=== PATIENT | female | born 1975 | race Caucasian/White ===

== ENCOUNTER 2022-08-12 02:00 | Observation (INO) ==
[2022-08-12 02:33] VITALS: BMI 33.8
[2022-08-12 03:08] LABS: BILIRUBIN,URINE NEGATIVE (NEGATIVE); BLOOD/HEMOGLOBIN,URINE 2+ (NEGATIVE); GLUCOSE, URINE 4+ (NEGATIVE); KETONES,URINE NEGATIVE (NEGATIVE); LEUKOCYTE ESTERASE ,URINE NEGATIVE (NEGATIVE); NITRITES,URINE NEGATIVE (NEGATIVE); PROTEIN,URINE 3+ (NEGATIVE); UROBILINOGEN,URINE NORMAL (NORMAL)
[2022-08-12 03:10] LABS: BASOPHILS # (AUTO) 0.1 X10^3/uL (0.0-0.1); BASOPHILS % (AUTO) 1.1 % (0.2-1.0); EOSINOPHILS # (AUTO) 0.2 x10^3/uL (0.0-0.2); EOSINOPHILS % (AUTO) 2.1 % (0.9-2.9); HEMATOCRIT 41.2 % (36.0-47.0); HEMOGLOBIN 13.6 g/dL (12.0-16.0); LYMPHOCYTES # (AUTO) 3.1 X10^3/uL (1.3-2.9); LYMPHOCYTES % (AUTO) 31.5 % (21.0-51.0); MEAN CORPUSCULAR HEMOGLOBIN 25.3 pg (27.0-34.0); MEAN CORPUSCULAR VOLUME 76.7 fL (80.0-100.0); MEAN PLATELET VOLUME 8.4 fL (7.4-11.0); MONOCYTES # (AUTO) 0.6 x10^3/uL (0.3-0.8); MONOCYTES % (AUTO) 6.3 % (0.0-13.0); NEUTROPHILS # (AUTO) 5.9 x10^3/uL (2.2-4.8); RED BLOOD COUNT 5.37 X10^6/uL (3.5-5.4)
--- NOTE | 2022-08-12 03:21 | DR.EXTPAIN ---
HPI Time seen Time Seen by Provider: 08/12/22 02:18 PCP Primary Care Physician: CYDNEY MOTA AT [facility] Complaint/Symptoms Chief Complaint Doctor Comments: Patient has epigastric abdominal pain.She was evaluated in [place] last night .Patient had labs done.She was diagnosed with indigestion.Patient states that her sxs began tuesday. She had not eaten anything until last night when she ate half of a ham sandwich.Patient observed that after eating she had epigastric pain that radiated to her entire back.Patient feels nauseated and presents b/c pf persistent pain. Patient denies: fever,hematemesis,hematochezia,weakness,urinary sxs. Chief Complaint:: PT AMBULATORY IN ED WITH C/O MID UPPER ABD PAIN RADIATING TO RIGHT UPPER ABD ABD BACK. STATES SHE WENT TO [facility] LAST NIGHT, DID A CARDIAC WORKUP AND DX HER WITH INDIGESTION. NO RELIEF WITH MEDS GIVEN THERE. COVID-19 Coronavirus risk:travel/contact w/high risk person: No Has patient experienced Coronavirus symptoms: No Source History Provided: Patient Mode of arrival Mode of Arrival: Ambulatory Timing Onset of Chief Complaint: 08/08/22 PMH PMH Past Medical History: Yes Past Medical History: Depression, Diabetes and Hypertension Past Medical History Comment: CONSTIPATION Past Surgical History: Yes Past Surgical History Comment: STENT TO LEFT GROIN ARTERY Family History History of Family Medical Conditions: Yes Family Medical History: Diabetes Mellitus, Cancer, MS, Coronary Artery Disease, Heart Failure and Hypertension Social History Does patient currently use any type of tobacco product: Yes Have you used tobacco products in the last 12 months: Yes Type of Tobacco Use: Cigarettes Does any household member use tobacco: No Alcohol Use: None Do you use any recreational Drugs:: No Lives With: Spouse Lives Where: Home Travel Risk Coronavirus risk:travel/contact w/high risk person: No Has patient experienced Coronavirus symptoms: No Infectious screening In the last 2 months have you had wt loss of >10#?: NO Have you had fever, night sweats or hemotysis?: No Have you traveled outside the country in the last 6 months?: No Isolation: Standard ROS Review of Systems Constitutional: No Symptoms Reported Eyes: No Symptoms Reported ENTM: No Symptoms Reported Respiratoy: No Symptoms Reported Cardiovascular: No Symptoms Reported Gastrointestinal/Abdominal: No Symptoms Reported, Abdominal Pain (epigastric) and Nausea Genitourinary: No Symptoms Reported Neurological: No Symptoms Reported Musculoskeletal: No Symptoms Reported Integumentary: No Symptoms Reported Hematologic/Lymphatic: No Symptoms Reported Endocrine: No Symptoms Reported Psychiatric: No Symptoms Reported All Other Systems: Reviewed and Negative PE Vital Signs Vitals: Temperature 98.0 F Pulse Rate [Right Brachial] 65 Pulse Rate 75 Respiratory Rate 20 Blood Pressure [Right Arm] 140/67 Blood Pressure 153/77 O2 Sat by Pulse Oximetry 99 General Limitations: No Limitations General Appearance: Alert and In No Apparent Distress Head Head Exam: Normal Inspection Eyes Eye exam: Normal Appearance ENT ENT Exam: Normal Exam Neck Neck Exam: Normal Inspection Chest Chest Inspection: Normal Inspection Respiratory Respiratory Exam: Normal Lung Sounds Bilat Respiratory Exam: Bilateral: Clear to Auscultation Cardiovascular Cardiovascular Exam: Regular Rate and Normal Rhythm Abdominal Exam Abdominal Exam: Normal Inspection, Soft, Tenderness (epigastrium) and Hypoactive Bowel Sounds Extremities Extremities Exam: Normal Inspection Back Back Exam: Normal Inspection Neurological Neurological Exam: Alert, Oriented X3 and CN II-XII Intact Psychiatric Psychiatric Exam: Normal Affect and Normal Mood Skin Skin Exam: Warm, Dry, Intact and Normal Color MDM Differential Diagnosis Differential Diagnosis: Other (Gallstone pancreatitis,pancreatitis,dehydration,electrolyte abnormality,obstruction,perforation) COURSE Treatment Treatment: Patient was brought to a monitored room. IV access was initiated.Patient was given toradol 30mg IV and zofran 4mg iv. Patient has a lipase of 2625.Patient has been accepted to Dr Mayes's service for further evaluation. ROR Labs Reviewed Laboratory Results Reviewed?: Yes Result Diagrams: 08/12/22 02:53 08/12/22 02:53 Laboratory: WBC 10.0 X10^3/uL (3.6-10.0) 08/12/22 02:53 RBC 5.37 X10^6/uL (3.5-5.4) 08/12/22 02:53 Hgb 13.6 g/dL (12.0-16.0) 08/12/22 02:53 Hct 41.2 % (36.0-47.0) 08/12/22 02:53 MCV 76.7 fL (80.0-100.0) L 08/12/22 02:53 MCH 25.3 pg (27.0-34.0) L 08/12/22 02:53 MCHC 33.0 g/dL (33.0-35.0) 08/12/22 02:53 RDW 16.0 % (11.6-16.5) 08/12/22 02:53 Plt Count 251 X10^3/uL (150.0-450.0) 08/12/22 02:53 MPV 8.4 fL (7.4-11.0) 08/12/22 02:53 Neut % (Auto) 59.0 % (42.0-75.0) 08/12/22 02:53 Lymph % (Auto) 31.5 % (21.0-51.0) 08/12/22 02:53 Mckean % (Auto) 6.3 % (0.0-13.0) 08/12/22 02:53 Eos % (Auto) 2.1 % (0.9-2.9) 08/12/22 02:53 Baso % (Auto) 1.1 % (0.2-1.0) H 08/12/22 02:53 Neut # (Auto) 5.9 x10^3/uL (2.2-4.8) H 08/12/22 02:53 Lymph # (Auto) 3.1 X10^3/uL (1.3-2.9) H 08/12/22 02:53 Mckean # (Auto) 0.6 x10^3/uL (0.3-0.8) 08/12/22 02:53 Eos # (Auto) 0.2 x10^3/uL (0.0-0.2) 08/12/22 02:53 Baso # (Auto) 0.1 X10^3/uL (0.0-0.1) 08/12/22 02:53 Absolute Nucleated RBC 0.0 /100WBC 08/12/22 02:53 Sodium 138 mmol/L (136-145) 08/12/22 02:53 Corrected Sodium 143 mmol/L (136-145) 08/12/22 02:53 Potassium 3.4 mmol/L (3.5-5.1) L 08/12/22 02:53 Chloride 101 mmol/L (98-107) 08/12/22 02:53 Carbon Dioxide 32.3 mmol/L (21-32) H 08/12/22 02:53 BUN 11 mg/dL (7-18) 08/12/22 02:53 Creatinine 0.80 mg/dL (0.55-1.02) 08/12/22 02:53 Est GFR (MDRD) Af Amer > 60 (>60) 08/12/22 02:53 Est GFR (MDRD) Non-Af > 60 (>60) 08/12/22 02:53 Glucose 318 mg/dL (65-99) H 08/12/22 02:53 Calcium 8.4 mg/dL (8.5-10.1) L 08/12/22 02:53 Corrected Calcium 9.1 mg/dL (8.5-10.1) 08/12/22 02:53 Total Bilirubin 0.20 mg/dL (0.2-1.0) 08/12/22 02:53 AST 15 Units/L (15-37) 08/12/22 02:53 ALT 19 Units/L (12-78) 08/12/22 02:53 Alkaline Phosphatase 67 Units/L (46-116) 08/12/22 02:53 Total Protein 6.7 g/dL (6.4-8.2) 08/12/22 02:53 Albumin 3.1 g/dL (3.4-5.0) L 08/12/22 02:53 Globulin 3.6 g/dL (2.5-4.5) 08/12/22 02:53 Albumin/Globulin Ratio 0.9 Ratio (1.1-2.1) L 08/12/22 02:53 Lipase 2625 Units/L (73-393) H 08/12/22 02:53 HCG, Qual Negative <10 mIU/mL 08/12/22 02:53 Specimen Type Clean catch urine 08/12/22 02:53 Urine Color Yellow (YELLOW) 08/12/22 02:53 Urine Appearance Clear (CLEAR) 08/12/22 02:53 Urine pH 5.0 (5.0 - 8.0) 08/12/22 02:53 Ur Specific [place] 1.020 (1.000-1.030) 08/12/22 02:53 Urine Protein 3+ (NEGATIVE) 08/12/22 02:53 Urine Glucose (UA) 4+ (NEGATIVE) 08/12/22 02:53 Urine Ketones Negative (NEGATIVE) 08/12/22 02:53 Urine Blood 2+ (NEGATIVE) 08/12/22 02:53 Urine Nitrite Negative (NEGATIVE) 08/12/22 02:53 Urine Bilirubin Negative (NEGATIVE) 08/12/22 02:53 Urine Urobilinogen Normal (NORMAL) 08/12/22 02:53 Ur Leukocyte Esterase Negative (NEGATIVE) 08/12/22 02:53 Urine RBC 0-2 /HPF (0-3) 08/12/22 02:53 Urine WBC None seen /HPF (0-5) 08/12/22 02:53 Ur Squamous Epith Cells Rare /HPF (NEGATIVE) 08/12/22 02:53 Urine Bacteria Negative /HPF (NEGATIVE) 08/12/22 02:53 Ur Culture Indicated? No/not indicated 08/12/22 02:53 XRAY XRAY Interpreted by: Radiologist X-ray Results: STUDY: CT ABDOMEN AND PELVIS WITH IV CONTRAST COMPARISON: None TECHNIQUE: Axial images were acquired of the abdomen and pelvis with IV contrast. Sagittal and coronal reformatted images were provided. All images were reviewed in a variety of windows and levels. RADIATION REDUCTION TECHNIQUE: Automated exposure control, adjustment of the mA and/or kV according to patient size, or iterative reconstruction techniques were used. HISTORY: PT AMBULATORY IN ED WITH C/O MID UPPER ABD PAIN RADIATING TO RIGHT UPPER ABD ABD BACK. FINDINGS: LOWER THORAX: The visualized lower lung zones are clear. The heart size is within normal limits. There is no evidence of a pericardial effusion. LIVER: No intrahepatic focal lesions are seen. No evidence of intrahepatic or extrahepatic duct dilation. GALLBLADDER: The gallbladder is unremarkable. SPLEEN: The spleen enhances homogenously and is unremarkable. PANCREAS: The pancreas enhances homogenously and is unremarkable. AGRENAL GLANDS: The adrenal glands enhance homogenously and are unremarkable. : The kidneys enhance homogenously. Their collecting system is of normal caliber.The uterus is grossly unremarkable. The adnexa are not clearly visualized. URINARY BLADDER: The urinary bladder is unremarkable. There are no soft tissue masses seen in the urinary bladder. VESSELS: The abdominal aorta is normal in size without evidence of aneurysm or dissection. The celiac artery, superior mesenteric artery, [place] renal arteries, and inferior mesenteric artery are patent. Endovascular stent noted in left common iliac vein. GI: The stomach and small bowel is unremarkable. Moderate to large amount of fecal material is seen throughout the GI tract suggesting constipation. There are no inflammatory changes seen in the right lower quadrant to suggest secondary signs of acute appendicitis. The appendix is not visualized on this exam. LYMPHNODES AND MESSENTERY: There is no evidence of retroperitoneal lymphadenop athy. BONES: The visualized bones demonstrate degenerative changes. There are no concerning lytic or blastic lesions identified. IMPRESSION: - No evidence of obstructive uropathy Electronically signed by: Jagdish Barrett (Aug 12, 2022 05:27:46) Opioid Opioid Risk Tool Age (Luis box if 16-45): Yes History of Preadolescent Sexual Abuse: No Total: 1 Total Score Risk Category: Low Risk Copyright: Kwesi GROSS predicting aberrant behaviors Discharge Plan Diagnosis Discharge Problem: Acute pancreatitis Discharge Plan Patient Disposition: 09 ADMITTED INPATIENT Condition: Stable Prescriptions: No Action spironolactone 25 mg tablet 1 tab PO QDAY metformin 1,000 mg tablet 1 tab PO BID hydrochlorothiazide 25 mg tablet 1 tab PO QDAY sertraline 50 mg tablet 1 tab PO QDAY glipizide 5 mg tablet 1 tab PO QDAY esomeprazole magnesium 20 mg capsule,delayed release(DR/EC) 1 cap PO BID Trulance 3 mg tablet 1 tab PO QDAY Health Concerns: Post Hospitalization: new medications and changes needed to prevent readmission or further decline. Pt educated and given instructions on all concerns. Plan of Treatment: Continue with present treatment and follow up plan. Pt is to keep follow up appointment as instructed and take medications as ordered. Orders to Discharge Patient Discharge Orders: Transfer (Routine); Ordered 08/12/22 Ordered By: Desiree Shultz Follow ups/Referrals Follow ups/Referrals: HALIMA MOTA [Primary Care Provider] - 3 days
[2022-08-12 03:25] LABS: ALANINE AMINOTRANSFERASE 19 Units/L (12-78); ALBUMIN 3.1 g/dL (3.4-5.0); ALKALINE PHOSPHATASE 67 Units/L (46-116); ASPARTATE AMINO TRANSFERASE 15 Units/L (15-37); BLOOD UREA NITROGEN 11 mg/dL (7-18); CALCIUM 8.4 mg/dL (8.5-10.1); CARBON DIOXIDE 32.3 mmol/L (21-32); CHLORIDE 101 mmol/L (98-107); COR CA(FOR HYPOALB) 9.1 mg/dL (8.5-10.1); COR NA(FOR HYPERGLY) 143 mmol/L (136-145); SODIUM 138 mmol/L (136-145); TOTAL PROTEIN 6.7 g/dL (6.4-8.2); eGFR NON BLACK RACES > 60 (>60)
[2022-08-12 03:28] LABS: APPEARANCE,URINE CLEAR (CLEAR); COLOR,URINE YELLOW (YELLOW)
[2022-08-12 03:29] LABS: BACTERIA,URINE NEGATIVE /HPF (NEGATIVE); RBC,URINE 0-2 /HPF (0-3); SQUAMOUS EPITHELIAL CELL,UR RARE /HPF (NEGATIVE)
[2022-08-12 03:32] LABS: SERUM PREGNANCY TEST, QUAL NEGATIVE <10 mIU/mL
[2022-08-12] MEDS ORDERED: TORADOL 30 MG VIAL IVP ONE (03:32)
[2022-08-12] MEDS ORDERED: ZOFRAN INJ 4 MG VIAL IVP ONE ×2 (03:34→06:49)
[2022-08-12] MEDS ORDERED: TORADOL 30 MG VIAL ONE (03:35)
[2022-08-12] MEDS ORDERED: ZOFRAN INJ 4 MG VIAL ONE ×2 (03:35→06:43)
--- NOTE | 2022-08-12 05:28 | CT ---
STUDY: CT ABDOMEN AND PELVIS WITH IV CONTRASTCOMPARISON: NoneTECHNIQUE: Axial images were acquired of the abdomen and pelvis with IV contrast. Sagittal and coronal reformatted images were provided. All images were reviewed in a variety of windows and levels.RADIATION REDUCTION TECHNIQUE: Automated exposure control, adjustment of the mA and/or kV according to patient size, or iterative reconstruction techniques were used.HISTORY: PT AMBULATORY IN ED WITH C/O MID UPPER ABD PAIN RADIATING TO RIGHT UPPER ABD ABD BACK.FINDINGS:LOWER THORAX: The visualized lower lung zones are clear. The heart size is within normal limits. There is no evidence of a pericardial effusion.LIVER: No intrahepatic focal lesions are seen. No evidence of intrahepatic or extrahepatic duct dilation.GALLBLADDER: The gallbladder is unremarkable.SPLEEN: The spleen enhances homogenously and is unremarkable.PANCREAS: The pancreas enhances homogenously and is unremarkable.AGRENAL GLANDS: The adrenal glands enhance homogenously and are unremarkable.: The kidneys enhance homogenously. Their collecting system is of normal caliber.The uterus is grossly unremarkable. The adnexa are not clearly visualized.URINARY BLADDER: The urinary bladder is unremarkable. There are no soft tissue masses seen in the urinary bladder.VESSELS: The abdominal aorta is normal in size without evidence of aneurysm or dissection. The celiac artery, superior mesenteric artery, [place] renal arteries, and inferior mesenteric artery are patent. Endovascular stent noted in left common iliac vein.GI: The stomach and small bowel is unremarkable. Moderate to large amount of fecal material is seen throughout the GI tract suggesting constipation. There are no inflammatory changes seen in the right lower quadrant to suggest secondary signs of acute appendicitis. The appendix is not visualized on this exam.LYMPHNODES AND MESSENTERY: There is no evidence of retroperitoneal lymphadenopathy.BONES: The visualized bones demonstrate degenerative changes. There are no concerning lytic or blastic lesions identified.IMPRESSION:- No evidence of obstructive uropathyElectronically signed by: Jagdish Barrett (Aug 12, 2022 05:27:46)
[2022-08-12] MEDS ORDERED: NS 1,000 ML IV 1,000 ML ONE (06:59)
[2022-08-12] MEDS: NS 1,000 ML IV 1,000 ML IV SCH ×2 (07:06→19:16)
[2022-08-12] MEDS ORDERED: NovoLIN R (or HumuLIN R) SUBCUT PRN (08:01)
[2022-08-12] MEDS: PROTONIX INJ 40 MG VIAL IVP SCH (09:14)
[2022-08-12] MEDS: ZOFRAN INJ 4 MG VIAL IVP PRN (09:14)
[2022-08-12] MEDS: ALDACTONE TAB 25 MG PO SCH (09:15)
[2022-08-12] MEDS: PLECANATIDE 3 MG PO SCH (09:15)
[2022-08-12] MEDS: HYDROCHLOROTHIAZIDE 25 MG TAB PO SCH (09:15)
[2022-08-12] MEDS: ZOLOFT PO SCH (09:15)
--- NOTE | 2022-08-12 13:00 | US ---
HISTORYACUTE PANCREATITIS, ABD PAINSTUDYGALL BLADDERCOMPARISONNoneTECHNIQUESeventy-ni ne images made by the english teacher. Jacob scale and color-flow images of the right upper quadrant were obtained.FINDINGSThe liver has diffuse increased echogenicity suggesting medical liver disease. The most common etiology for this finding is fatty liver; but cirrhosis, chronic hepatitis, and deposition disorders can have a similar appearance. The liver is large measuring over 20 cm. No mass or intrahepatic biliary duct dilatation is present. The intrahepatic inferior vena cava was imaged.The visualized hepatic veins are patent with blood flow toward the right atrium. The portal vein is patent with blood flow toward the liver. The hepatic artery is patent.The pancreatic head and proximal body are unremarkable. The remaining pancreas is not well identified due to overlying bowel gas.Echogenic areas with shadowing are present compatible with gallstones. No extrahepatic biliary duct dilatation; common duct is normal.The right kidney is normal in size and echogenicity. No hydronephrosis. Resistive index measures 0.5.IMPRESSION1. Cholelithiasis2. Hepatomegaly with findings suggesting steatosisElectronically signed by: Dandre Brady (Aug 12, 2022 12:58:43)
[2022-08-12] MEDS: NICOTINE PATCH TD SCH (13:22)
--- NOTE | 2022-08-12 17:38 | DR.H&P ---
H&P History & Physical for Day of: H&P Date: 08/12/22 Chief Complaint Chief Complaint: Epigastric pain Allergies Allergies Allergy/AdvReac Type Severity Reaction Status Date / Time Sulfa (Sulfonamide Allergy Verified 08/12/22 02:33 Antibiotics) [SULFA] History of Present Illness History of Present Illness: This is a pleasant 47-year-old white female who presented to the emergency department last night with epigastric pain. She is previously seen in the [facility] emergency department the night before and was diagnosed with indigestion. She has some labs but they might not have done amylase or lipase on her. Here she was found to have pancreatitis. Her symptoms started about 6 days ago and she reports she had not been eating much and that she ate a ham sandwich and that started the pain again in the epigastrium. She does report having a gallbladder still and had a gallbladder ultrasound years ago that did not show any gallstones. Exam today shows right upper quadrant tenderness along with epigastric tenderness. She is history of depression, diabetes mellitus type 2 and hypertension. Past Medical History Past Medical History: Depression, Diabetes and Hypertension Family History Family Medical History: Diabetes Mellitus, Cancer and Hypertension Social History Does patient currently use any type of tobacco product: Yes Have you used tobacco products in the last 12 months: Yes Type of Tobacco Use: Cigarettes Does any household member use tobacco: No Alcohol Use: None Drug Use: None Medications Home Medications: Sulfa (Sulfonamide Antibiotics) [SULFA] Allergy (Verified 08/12/22 02:33) CONTINUE taking the following medications cephalexin 500 mg capsule 1 cap PO BID 08/12/22 [History] esomeprazole magnesium 20 mg capsule,delayed release 1 cap PO BID 08/12/22 [History] glipizide 5 mg tablet 1 tab PO QDAY 08/12/22 [History] hydrochlorothiazide 25 mg tablet 1 tab PO QDAY 08/12/22 [History] metformin 1,000 mg tablet 1 tab PO BID 08/12/22 [History] plecanatide 3 mg tablet (Trulance) 1 tab PO QDAY 08/12/22 [History] sertraline 50 mg tablet 1 tab PO QDAY 08/12/22 [History] spironolactone 25 mg tablet 1 tab PO QDAY 08/12/22 [History] Labs Result Diagrams: 08/12/22 02:53 08/12/22 02:53 Labs: Laboratory WBC 10.0 X10^3/uL (3.6-10.0) 08/12/22 02:53 RBC 5.37 X10^6/uL (3.5-5.4) 08/12/22 02:53 Hgb 13.6 g/dL (12.0-16.0) 08/12/22 02:53 Hct 41.2 % (36.0-47.0) 08/12/22 02:53 MCV 76.7 fL (80.0-100.0) L 08/12/22 02:53 MCH 25.3 pg (27.0-34.0) L 08/12/22 02:53 MCHC 33.0 g/dL (33.0-35.0) 08/12/22 02:53 RDW 16.0 % (11.6-16.5) 08/12/22 02:53 Plt Count 251 X10^3/uL (150.0-450.0) 08/12/22 02:53 MPV 8.4 fL (7.4-11.0) 08/12/22 02:53 Neut % (Auto) 59.0 % (42.0-75.0) 08/12/22 02:53 Lymph % (Auto) 31.5 % (21.0-51.0) 08/12/22 02:53 Walker % (Auto) 6.3 % (0.0-13.0) 08/12/22 02:53 Eos % (Auto) 2.1 % (0.9-2.9) 08/12/22 02:53 Baso % (Auto) 1.1 % (0.2-1.0) H 08/12/22 02:53 Neut # (Auto) 5.9 x10^3/uL (2.2-4.8) H 08/12/22 02:53 Lymph # (Auto) 3.1 X10^3/uL (1.3-2.9) H 08/12/22 02:53 Walker # (Auto) 0.6 x10^3/uL (0.3-0.8) 08/12/22 02:53 Eos # (Auto) 0.2 x10^3/uL (0.0-0.2) 08/12/22 02:53 Baso # (Auto) 0.1 X10^3/uL (0.0-0.1) 08/12/22 02:53 Absolute Nucleated RBC 0.0 /100WBC 08/12/22 02:53 Sodium 138 mmol/L (136-145) 08/12/22 02:53 Corrected Sodium 143 mmol/L (136-145) 08/12/22 02:53 Potassium 3.4 mmol/L (3.5-5.1) L 08/12/22 02:53 Chloride 101 mmol/L (98-107) 08/12/22 02:53 Carbon Dioxide 32.3 mmol/L (21-32) H 08/12/22 02:53 BUN 11 mg/dL (7-18) 08/12/22 02:53 Creatinine 0.80 mg/dL (0.55-1.02) 08/12/22 02:53 Est GFR (MDRD) Af Amer > 60 (>60) 08/12/22 02:53 Est GFR (MDRD) Non-Af > 60 (>60) 08/12/22 02:53 Glucose 318 mg/dL (65-99) H 08/12/22 02:53 POC Glucose (mg/dL) 194 mg/dL (65-99) H 08/12/22 16:30 Calcium 8.4 mg/dL (8.5-10.1) L 08/12/22 02:53 Corrected Calcium 9.1 mg/dL (8.5-10.1) 08/12/22 02:53 Total Bilirubin 0.20 mg/dL (0.2-1.0) 08/12/22 02:53 AST 15 Units/L (15-37) 08/12/22 02:53 ALT 19 Units/L (12-78) 08/12/22 02:53 Alkaline Phosphatase 67 Units/L (46-116) 08/12/22 02:53 Total Protein 6.7 g/dL (6.4-8.2) 08/12/22 02:53 Albumin 3.1 g/dL (3.4-5.0) L 08/12/22 02:53 Globulin 3.6 g/dL (2.5-4.5) 08/12/22 02:53 Albumin/Globulin Ratio 0.9 Ratio (1.1-2.1) L 08/12/22 02:53 Lipase 2625 Units/L (73-393) H 08/12/22 02:53 HCG, Qual Negative <10 mIU/mL 08/12/22 02:53 Specimen Type Clean catch urine 08/12/22 02:53 Urine Color Yellow (YELLOW) 08/12/22 02:53 Urine Appearance Clear (CLEAR) 08/12/22 02:53 Urine pH 5.0 (5.0 - 8.0) 08/12/22 02:53 Ur Specific [place] 1.020 (1.000-1.030) 08/12/22 02:53 Urine Protein 3+ (NEGATIVE) 08/12/22 02:53 Urine Glucose (UA) 4+ (NEGATIVE) 08/12/22 02:53 Urine Ketones Negative (NEGATIVE) 08/12/22 02:53 Urine Blood 2+ (NEGATIVE) 08/12/22 02:53 Urine Nitrite Negative (NEGATIVE) 08/12/22 02:53 Urine Bilirubin Negative (NEGATIVE) 08/12/22 02:53 Urine Urobilinogen Normal (NORMAL) 08/12/22 02:53 Ur Leukocyte Esterase Negative (NEGATIVE) 08/12/22 02:53 Urine RBC 0-2 /HPF (0-3) 08/12/22 02:53 Urine WBC None seen /HPF (0-5) 08/12/22 02:53 Ur Squamous Epith Cells Rare /HPF (NEGATIVE) 08/12/22 02:53 Urine Bacteria Negative /HPF (NEGATIVE) 08/12/22 02:53 Ur Culture Indicated? No/not indicated 08/12/22 02:53 Review of Systems Constitutional: No Symptoms Reported Eyes: No Symptoms Reported ENT: No Symptoms Reported Respiratory: No Symptoms Reported Cardiovascular: No Symptoms Reported Gastrointestinal: Nausea and Abdominal Pain Musculoskeletal: No Symptoms Reported Skin: No Symptoms Reported Neurological: No Symptoms Reported Physical Exam Vital Signs: Temperature 97.2 F Pulse Rate [Right Brachial] 55 Pulse Rate 75 Respiratory Rate 16 Blood Pressure [Right Arm] 130/61 Blood Pressure 153/77 O2 Sat by Pulse Oximetry 99 Oriented: Normal, Time, Person and Place Eyes: Normal Nose: Normal Throat: Normal Respiratory: Clear Throughout Cardiovascular: Normal; negative Tachycardia, Bradycardia or Irregular Auscultation: Bowel Sounds: Normal Palpation: Normal Tenderness: RUQ and Epigastric Skin: Normal Musculoskeletal: Normal Psychiatric: Normal Mood Description: Calm Affect: Normal Speech Pattern: Clear and Appropriate Assessment/Plan (1) Acute pancreatitis: Status: Acute Plan: N.p.o., IV fluids and pain control. Recheck amylase lipase in a.m. (2) Right upper quadrant pain: Status: Acute Plan: Check gallbladder ultrasound. (3) Diabetes mellitus type 2 in obese: Status: Acute Plan: Start slight scale regular insulin per protocol. (4) Hypertension: Status: Acute Plan: Hold p.o. medications at this time. If needed we will treat with IV Lopressor. (5) Depression: Narrative Support Text: Holding p.o. medications at this time. Status: Acute Review H&P Reviewed: Yes Patient was examined?: Yes
[2022-08-12] MEDS ORDERED: MORPHINE SULFATE INJ 2 MG INJ ONE (18:32)
[2022-08-12] MEDS: MORPHINE SULFATE INJ 2 MG INJ IVP PRN ×2 (18:33→22:30)
[2022-08-12] MEDS: SNACK - Diabetic Appropriate PO SCH (21:16)
[2022-08-13 06:13] LABS: BASOPHILS % (AUTO) 0.7 % (0.2-1.0); EOSINOPHILS # (AUTO) 0.2 x10^3/uL (0.0-0.2); EOSINOPHILS % (AUTO) 2.8 % (0.9-2.9); HEMATOCRIT 40.4 % (36.0-47.0); HEMOGLOBIN 13.3 g/dL (12.0-16.0); LYMPHOCYTES # (AUTO) 2.2 X10^3/uL (1.3-2.9); LYMPHOCYTES % (AUTO) 30.5 % (21.0-51.0); MEAN CORPUSCULAR HEMOGLOBIN 25.4 pg (27.0-34.0); MEAN CORPUSCULAR HGB CONC 32.8 g/dL (33.0-35.0); MEAN CORPUSCULAR VOLUME 77.3 fL (80.0-100.0); MEAN PLATELET VOLUME 8.6 fL (7.4-11.0); MONOCYTES # (AUTO) 0.4 x10^3/uL (0.3-0.8); MONOCYTES % (AUTO) 5.6 % (0.0-13.0); NEUTROPHILS # (AUTO) 4.3 x10^3/uL (2.2-4.8); NEUTROPHILS % (AUTO) 60.4 % (42.0-75.0); RED BLOOD COUNT 5.23 X10^6/uL (3.5-5.4); WHITE BLOOD COUNT 7.1 X10^3/uL (3.6-10.0)
[2022-08-13 06:31] LABS: ALANINE AMINOTRANSFERASE 19 Units/L (12-78); ALBUMIN 2.8 g/dL (3.4-5.0); ALKALINE PHOSPHATASE 64 Units/L (46-116); ASPARTATE AMINO TRANSFERASE 16 Units/L (15-37); BLOOD UREA NITROGEN 6 mg/dL (7-18); CALCIUM 7.9 mg/dL (8.5-10.1); CARBON DIOXIDE 29.2 mmol/L (21-32); CHLORIDE 105 mmol/L (98-107); COR CA(FOR HYPOALB) 8.9 mg/dL (8.5-10.1); COR NA(FOR HYPERGLY) 143 mmol/L (136-145); CREATININE 0.63 mg/dL (0.55-1.02); LIPASE 956 Units/L (73-393); SODIUM 140 mmol/L (136-145); TOTAL PROTEIN 6.1 g/dL (6.4-8.2); eGFR NON BLACK RACES > 60 (>60)
[2022-08-13] MEDS: NS 1,000 ML IV 1,000 ML IV SCH ×3 (09:09→22:26)
[2022-08-13] MEDS: NICOTINE PATCH TD SCH (09:10)
[2022-08-13] MEDS: ALDACTONE TAB 25 MG PO SCH (09:10)
[2022-08-13] MEDS: PROTONIX INJ 40 MG VIAL IVP SCH (09:10)
[2022-08-13] MEDS: ZOLOFT PO SCH (09:10)
[2022-08-13] MEDS: HYDROCHLOROTHIAZIDE 25 MG TAB PO SCH (09:10)
[2022-08-13 09:19] LABS: IRON 72 ug/dL (50-175)
[2022-08-13] MEDS: PLECANATIDE 3 MG PO SCH (12:55)
--- NOTE | 2022-08-13 14:36 | DR.PROGNOT ---
HOSPITAL PROGRESS NOTE Progress Note for Day of: Progress Note Date: 08/13/22 Chief Complaint Chief Complaint: LESS ABDOMINAL PAIN TODAY .TOLERATING LIQUID DIET THIS AM History of Present Illness History of Present Illness: same as before . Past Medical Family Social History Changes in Past Med/Fam/Surg Hx: type 2 DM, HTN, chronic cholecystitis by Hx , Wt loss 100 lb , chronic cons Allergies: Allergies Sulfa (Sulfonamide Antibiotics) [SULFA] Allergy (Verified 08/12/22 02:33) Vital Signs Vital Signs: Temperature 97.3 F Pulse Rate [Right Brachial] 57 Pulse Rate 75 Respiratory Rate 18 Blood Pressure [Right Arm] 136/75 Blood Pressure 153/77 O2 Sat by Pulse Oximetry 97 Physical Exam Oriented: Normal, Time, Person and Place Eyes: Normal Nose: Normal Throat: Normal Cardiovascular: Normal; negative Tachycardia, Bradycardia or Irregular GI:Auscultation: Normal GI:Palpation: Other (soft , flat abdomen with mild upper abdominal tenderness . BS+) GI: Tenderness: RUQ and Epigastric Skin: Normal Musculoskeletal: Normal Psychiatric: Normal Mood Description: Calm Affect: Normal Speech Pattern: Clear and Appropriate Laboratory and Diagnostics Result Diagrams: 08/13/22 05:16 08/13/22 05:16 Labs: Laboratory WBC 7.1 X10^3/uL (3.6-10.0) 08/13/22 05:16 RBC 5.23 X10^6/uL (3.5-5.4) 08/13/22 05:16 Hgb 13.3 g/dL (12.0-16.0) 08/13/22 05:16 Hct 40.4 % (36.0-47.0) 08/13/22 05:16 MCV 77.3 fL (80.0-100.0) L 08/13/22 05:16 MCH 25.4 pg (27.0-34.0) L 08/13/22 05:16 MCHC 32.8 g/dL (33.0-35.0) L 08/13/22 05:16 RDW 16.0 % (11.6-16.5) 08/13/22 05:16 Plt Count 231 X10^3/uL (150.0-450.0) 08/13/22 05:16 MPV 8.6 fL (7.4-11.0) 08/13/22 05:16 Neut % (Auto) 60.4 % (42.0-75.0) 08/13/22 05:16 Lymph % (Auto) 30.5 % (21.0-51.0) 08/13/22 05:16 [place] % (Auto) 5.6 % (0.0-13.0) 08/13/22 05:16 Eos % (Auto) 2.8 % (0.9-2.9) 08/13/22 05:16 Baso % (Auto) 0.7 % (0.2-1.0) 08/13/22 05:16 Neut # (Auto) 4.3 x10^3/uL (2.2-4.8) 08/13/22 05:16 Lymph # (Auto) 2.2 X10^3/uL (1.3-2.9) 08/13/22 05:16 [place] # (Auto) 0.4 x10^3/uL (0.3-0.8) 08/13/22 05:16 Eos # (Auto) 0.2 x10^3/uL (0.0-0.2) 08/13/22 05:16 Baso # (Auto) 0.0 X10^3/uL (0.0-0.1) 08/13/22 05:16 Absolute Nucleated RBC 0.0 /100WBC 08/13/22 05:16 Sodium 140 mmol/L (136-145) 08/13/22 05:16 Corrected Sodium 143 mmol/L (136-145) 08/13/22 05:16 Potassium 3.9 mmol/L (3.5-5.1) 08/13/22 05:16 Chloride 105 mmol/L (98-107) 08/13/22 05:16 Carbon Dioxide 29.2 mmol/L (21-32) 08/13/22 05:16 BUN 6 mg/dL (7-18) L 08/13/22 05:16 Creatinine 0.63 mg/dL (0.55-1.02) 08/13/22 05:16 Est GFR (MDRD) Af Amer > 60 (>60) 08/13/22 05:16 Est GFR (MDRD) Non-Af > 60 (>60) 08/13/22 05:16 Glucose 206 mg/dL (65-99) H 08/13/22 05:16 POC Glucose (mg/dL) 237 mg/dL (65-99) H 08/13/22 12:32 Calcium 7.9 mg/dL (8.5-10.1) L 08/13/22 05:16 Corrected Calcium 8.9 mg/dL (8.5-10.1) 08/13/22 05:16 Iron 72 ug/dL (50-175) 08/13/22 05:16 Iron 74 ug/dL (50-175) 08/13/22 05:16 TIBC 300 ug/dL (250-450) 08/13/22 05:16 % Saturation 24.7 % (11.0-46.0) 08/13/22 05:16 Transferrin 218 mg/dL (202-364) 08/13/22 05:16 Ferritin 23 ng/mL (8-252) 08/13/22 05:16 Total Bilirubin 0.30 mg/dL (0.2-1.0) 08/13/22 05:16 AST 16 Units/L (15-37) 08/13/22 05:16 ALT 19 Units/L (12-78) 08/13/22 05:16 Alkaline Phosphatase 64 Units/L (46-116) 08/13/22 05:16 Total Protein 6.1 g/dL (6.4-8.2) L 08/13/22 05:16 Albumin 2.8 g/dL (3.4-5.0) L 08/13/22 05:16 Globulin 3.3 g/dL (2.5-4.5) 08/13/22 05:16 Albumin/Globulin Ratio 0.8 Ratio (1.1-2.1) L 08/13/22 05:16 Lipase 956 Units/L (73-393) H 08/13/22 05:16 HCG, Qual Negative <10 mIU/mL 08/12/22 02:53 Specimen Type Clean catch urine 08/12/22 02:53 Urine Color Yellow (YELLOW) 08/12/22 02:53 Urine Appearance Clear (CLEAR) 08/12/22 02:53 Urine pH 5.0 (5.0 - 8.0) 08/12/22 02:53 Ur Specific [place] 1.020 (1.000-1.030) 08/12/22 02:53 Urine Protein 3+ (NEGATIVE) 08/12/22 02:53 Urine Glucose (UA) 4+ (NEGATIVE) 08/12/22 02:53 Urine Ketones Negative (NEGATIVE) 08/12/22 02:53 Urine Blood 2+ (NEGATIVE) 08/12/22 02:53 Urine Nitrite Negative (NEGATIVE) 08/12/22 02:53 Urine Bilirubin Negative (NEGATIVE) 08/12/22 02:53 Urine Urobilinogen Normal (NORMAL) 08/12/22 02:53 Ur Leukocyte Esterase Negative (NEGATIVE) 08/12/22 02:53 Urine RBC 0-2 /HPF (0-3) 08/12/22 02:53 Urine WBC None seen /HPF (0-5) 08/12/22 02:53 Ur Squamous Epith Cells Rare /HPF (NEGATIVE) 08/12/22 02:53 Urine Bacteria Negative /HPF (NEGATIVE) 08/12/22 02:53 Ur Culture Indicated? No/not indicated 08/12/22 02:53 Assessment and Plan 1: subsiding gallstone pancreatitis . Pt could be discharged and arrange for elective lap wm next week 2: DM and HTN Problem Patient Problems: Patient Problems (Updated 08/12/22 @ 17:37 by THANIA GIRALDO) Acute pancreatitis (Acute) K85.90
[2022-08-13] MEDS: MORPHINE SULFATE INJ 2 MG INJ IVP PRN ×2 (18:19→23:16)
[2022-08-13] MEDS: ZOFRAN INJ 4 MG VIAL IVP PRN (18:22)
--- NOTE | 2022-08-13 19:05 | PCM.PROG ---
Progress Note Progress Note for Day of Date of Exam: 08/13/22 Subjective Subjective: Patient is feeling somewhat better this morning. She had no acute problems overnight. Her labs look good and her lipase is come down to the 900s. She is having less epigastric pain but she voices her concern about going home today. I told her we would recheck her lipase this afternoon and we did it it came down to 805 from greater than 900. She wanted to go home but we were able to convince her to stay and recheck her lipase in the morning to see what it was. I did do a general surgery consultation today and they have scheduled her to have a cholecystectomy set up as outpatient now. As soon as her lipase returns normal we will plan on letting her eat and if she tolerates it di scharging her home if she tolerates p.o intake. Past Medical Family Social History Allergies: Allergies Sulfa (Sulfonamide Antibiotics) [SULFA] Allergy (Verified 08/12/22 02:33) Vital Signs and I&O's Vital Signs: Temperature 98.6 F Pulse Rate [Right Brachial] 60 Pulse Rate 75 Respiratory Rate 20 Blood Pressure [Right Arm] 130/74 Blood Pressure 153/77 O2 Sat by Pulse Oximetry 99 Intake and Output: Intake & Output 08/11/22 08/12/22 08/13/22 08/14/22 11:59 11:59 11:59 11:59 Intake Total 1691 / 1691 240 / 240 Balance 1691 / 1691 240 / 240 Physical Exam Oriented: Normal, Time, Person and Place Eyes: Normal Nose: Normal Throat: Normal Respiratory: Normal Cardiovascular: Normal; negative Tachycardia, Bradycardia or Irregular Auscultation: Bowel Sounds: Normal Tenderness: RUQ and Epigastric Skin: Normal Musculoskeletal: Normal Psychiatric: Normal Mood Description: Calm Affect: Normal Speech Pattern: Clear and Appropriate Laboratory and Diagnostics Result Diagrams: 08/13/22 05:16 08/13/22 05:16 Labs: Laboratory WBC 7.1 X10^3/uL (3.6-10.0) 08/13/22 05:16 RBC 5.23 X10^6/uL (3.5-5.4) 08/13/22 05:16 Hgb 13.3 g/dL (12.0-16.0) 08/13/22 05:16 Hct 40.4 % (36.0-47.0) 08/13/22 05:16 MCV 77.3 fL (80.0-100.0) L 08/13/22 05:16 MCH 25.4 pg (27.0-34.0) L 08/13/22 05:16 MCHC 32.8 g/dL (33.0-35.0) L 08/13/22 05:16 RDW 16.0 % (11.6-16.5) 08/13/22 05:16 Plt Count 231 X10^3/uL (150.0-450.0) 08/13/22 05:16 MPV 8.6 fL (7.4-11.0) 08/13/22 05:16 Neut % (Auto) 60.4 % (42.0-75.0) 08/13/22 05:16 Lymph % (Auto) 30.5 % (21.0-51.0) 08/13/22 05:16 [place] % (Auto) 5.6 % (0.0-13.0) 08/13/22 05:16 Eos % (Auto) 2.8 % (0.9-2.9) 08/13/22 05:16 Baso % (Auto) 0.7 % (0.2-1.0) 08/13/22 05:16 Neut # (Auto) 4.3 x10^3/uL (2.2-4.8) 08/13/22 05:16 Lymph # (Auto) 2.2 X10^3/uL (1.3-2.9) 08/13/22 05:16 [place] # (Auto) 0.4 x10^3/uL (0.3-0.8) 08/13/22 05:16 Eos # (Auto) 0.2 x10^3/uL (0.0-0.2) 08/13/22 05:16 Baso # (Auto) 0.0 X10^3/uL (0.0-0.1) 08/13/22 05:16 Absolute Nucleated RBC 0.0 /100WBC 08/13/22 05:16 Sodium 140 mmol/L (136-145) 08/13/22 05:16 Corrected Sodium 143 mmol/L (136-145) 08/13/22 05:16 Potassium 3.9 mmol/L (3.5-5.1) 08/13/22 05:16 Chloride 105 mmol/L (98-107) 08/13/22 05:16 Carbon Dioxide 29.2 mmol/L (21-32) 08/13/22 05:16 BUN 6 mg/dL (7-18) L 08/13/22 05:16 Creatinine 0.63 mg/dL (0.55-1.02) 08/13/22 05:16 Est GFR (MDRD) Af Amer > 60 (>60) 08/13/22 05:16 Est GFR (MDRD) Non-Af > 60 (>60) 08/13/22 05:16 Glucose 206 mg/dL (65-99) H 08/13/22 05:16 POC Glucose (mg/dL) 177 mg/dL (65-99) H 08/13/22 17:32 Calcium 7.9 mg/dL (8.5-10.1) L 08/13/22 05:16 Corrected Calcium 8.9 mg/dL (8.5-10.1) 08/13/22 05:16 Iron 72 ug/dL (50-175) 08/13/22 05:16 Iron 74 ug/dL (50-175) 08/13/22 05:16 TIBC 300 ug/dL (250-450) 08/13/22 05:16 % Saturation 24.7 % (11.0-46.0) 08/13/22 05:16 Transferrin 218 mg/dL (202-364) 08/13/22 05:16 Ferritin 23 ng/mL (8-252) 08/13/22 05:16 Total Bilirubin 0.30 mg/dL (0.2-1.0) 08/13/22 05:16 AST 16 Units/L (15-37) 08/13/22 05:16 ALT 19 Units/L (12-78) 08/13/22 05:16 Alkaline Phosphatase 64 Units/L (46-116) 08/13/22 05:16 Total Protein 6.1 g/dL (6.4-8.2) L 08/13/22 05:16 Albumin 2.8 g/dL (3.4-5.0) L 08/13/22 05:16 Globulin 3.3 g/dL (2.5-4.5) 08/13/22 05:16 Albumin/Globulin Ratio 0.8 Ratio (1.1-2.1) L 08/13/22 05:16 Lipase 805 Units/L (73-393) H 08/13/22 15:58 HCG, Qual Negative <10 mIU/mL 08/12/22 02:53 Specimen Type Clean catch urine 08/12/22 02:53 Urine Color Yellow (YELLOW) 08/12/22 02:53 Urine Appearance Clear (CLEAR) 08/12/22 02:53 Urine pH 5.0 (5.0 - 8.0) 08/12/22 02:53 Ur Specific [place] 1.020 (1.000-1.030) 08/12/22 02:53 Urine Protein 3+ (NEGATIVE) 08/12/22 02:53 Urine Glucose (UA) 4+ (NEGATIVE) 08/12/22 02:53 Urine Ketones Negative (NEGATIVE) 08/12/22 02:53 Urine Blood 2+ (NEGATIVE) 08/12/22 02:53 Urine Nitrite Negative (NEGATIVE) 08/12/22 02:53 Urine Bilirubin Negative (NEGATIVE) 08/12/22 02:53 Urine Urobilinogen Normal (NORMAL) 08/12/22 02:53 Ur Leukocyte Esterase Negative (NEGATIVE) 08/12/22 02:53 Urine RBC 0-2 /HPF (0-3) 08/12/22 02:53 Urine WBC None seen /HPF (0-5) 08/12/22 02:53 Ur Squamous Epith Cells Rare /HPF (NEGATIVE) 08/12/22 02:53 Urine Bacteria Negative /HPF (NEGATIVE) 08/12/22 02:53 Ur Culture Indicated? No/not indicated 08/12/22 02:53 Plan (1) Acute pancreatitis: Status: Acute Narrative Support Text: Lipase decreasing since admission. Plan: N.p.o., IV fluids and pain control. Recheck amylase lipase in a.m. (2) Right upper quadrant pain: Status: Acute Plan: Check gallbladder ultrasound. (3) Diabetes mellitus type 2 in obese: Status: Acute Plan: Start slight scale regular insulin per protocol. (4) Hypertension: Status: Acute Plan: Hold p.o. medications at this time. If needed we will treat with IV Lopressor. (5) Depression: Status: Acute (6) Hepatomegaly: Status: Acute Plan: Check hepatitis panel and iron panel. (7) Steatosis, liver: Status: Acute Plan: Check hepatitis panel and iron panel. (8) Cholelithiasis: Status: Acute Plan: General surgery consultation.
[2022-08-13] MEDS: SNACK - Diabetic Appropriate PO SCH (20:37)
[2022-08-14] MEDS: MORPHINE SULFATE INJ 2 MG INJ IVP PRN (05:55)
[2022-08-14] MEDS: ZOLOFT PO SCH (08:49)
[2022-08-14] MEDS: PROTONIX INJ 40 MG VIAL IVP SCH (08:50)
[2022-08-14] MEDS: NICOTINE PATCH TD SCH (08:50)
[2022-08-14] MEDS: HYDROCHLOROTHIAZIDE 25 MG TAB PO SCH (08:50)
[2022-08-14] MEDS: ALDACTONE TAB 25 MG PO SCH (08:50)
[2022-08-14] MEDS: PLECANATIDE 3 MG PO SCH (08:51)
[2022-08-14 09:04] LABS: BASOPHILS # (AUTO) 0.1 X10^3/uL (0.0-0.1); BASOPHILS % (AUTO) 0.9 % (0.2-1.0); EOSINOPHILS # (AUTO) 0.1 x10^3/uL (0.0-0.2); EOSINOPHILS % (AUTO) 2.3 % (0.9-2.9); HEMATOCRIT 40.5 % (36.0-47.0); HEMOGLOBIN 13.1 g/dL (12.0-16.0); LYMPHOCYTES # (AUTO) 1.9 X10^3/uL (1.3-2.9); LYMPHOCYTES % (AUTO) 32.3 % (21.0-51.0); MEAN CORPUSCULAR HEMOGLOBIN 24.8 pg (27.0-34.0); MEAN CORPUSCULAR HGB CONC 32.3 g/dL (33.0-35.0); MEAN CORPUSCULAR VOLUME 76.7 fL (80.0-100.0); MEAN PLATELET VOLUME 8.2 fL (7.4-11.0); MONOCYTES # (AUTO) 0.3 x10^3/uL (0.3-0.8); MONOCYTES % (AUTO) 4.8 % (0.0-13.0); NEUTROPHILS # (AUTO) 3.5 x10^3/uL (2.2-4.8); NEUTROPHILS % (AUTO) 59.7 % (42.0-75.0); RED BLOOD COUNT 5.28 X10^6/uL (3.5-5.4); WHITE BLOOD COUNT 5.9 X10^3/uL (3.6-10.0)
[2022-08-14 09:07] LABS: ALANINE AMINOTRANSFERASE 16 Units/L (12-78); ALBUMIN 2.7 g/dL (3.4-5.0); ALKALINE PHOSPHATASE 57 Units/L (46-116); ASPARTATE AMINO TRANSFERASE 17 Units/L (15-37); BLOOD UREA NITROGEN 5 mg/dL (7-18); CALCIUM 8.1 mg/dL (8.5-10.1); CHLORIDE 105 mmol/L (98-107); COR CA(FOR HYPOALB) 9.1 mg/dL (8.5-10.1); COR NA(FOR HYPERGLY) 143 mmol/L (136-145); CREATININE 0.64 mg/dL (0.55-1.02); LIPASE 452 Units/L (73-393); SODIUM 141 mmol/L (136-145); eGFR NON BLACK RACES > 60 (>60)
[2022-08-14 09:54] VITALS: BP 147/80
== END 2022-08-14 10:10 | disposition home or self-care (01) ==
LOC: ER 02:17 → MED/SURG 02:17
PROVIDERS: ADMIT Family Medicine; ATTEND Family Medicine
DX: K80.20 Calculus of gallbladder without cholecystitis without obstruction; F32.A Depression, unspecified; R16.0 Hepatomegaly, not elsewhere classified; K76.0 Fatty (change of) liver, not elsewhere classified; R10.11 Right upper quadrant pain; Z72.0 Tobacco use; E66.9 Obesity, unspecified; K85.90 Acute pancreatitis without necrosis or infection, unspecified; I10 Essential (primary) hypertension; E11.65 Type 2 diabetes mellitus with hyperglycemia; R10.13 Epigastric pain

== ENCOUNTER 2022-08-27 06:14 | Observation (INO) ==
[2022-08-27] MEDS ORDERED: NS 100 ML IV 100 ML ONE (06:52)
[2022-08-27] MEDS ORDERED: NS 1,000 ML IV 1,000 ML ONE ×4 (06:53→09:56)
[2022-08-27] MEDS ORDERED: ANCEF VIAL 1 GRAM ONE (06:53)
--- NOTE | 2022-08-27 07:00 | EKG ---
Test Reason : pre op Blood Pressure : */* mmHG Vent. Rate : 63 BPM Atrial Rate : 63 BPM P-R Int : 156 ms QRS Dur : 92 ms QT Int : 406 ms P-R-T Axes : -7 25 16 degrees QTc Int : 415 ms Normal sinus rhythm Normal ECG No previous ECGs available Confirmed by Jann Helm ([id number]) on 08/29/2022 9:44:08 AM Referred By: Confirmed By: Jann Helm
--- NOTE | 2022-08-27 07:10 | RAD ---
HISTORYPRE-OP LAP CHOLESTUDYCHEST, 1 VIEWCOMPARISONNoneTECHNIQUEPA or AP view of the chestFINDINGSThe cardiac and mediastinal contours are within normal limits. The lungs are clear without focal consolidation or segmental collapse. No pleural effusion or pneumothorax.IMPRESSIONNo acute pulmonary process.Electronically signed by: Sen Hahn (Aug 27, 2022 07:03:23)
[2022-08-27] MEDS ORDERED: BRIDION ONE (07:18)
[2022-08-27] MEDS ORDERED: DIPRIVAN VIAL 20 ML ONE (07:18)
[2022-08-27] MEDS ORDERED: XYLOCAINE 2 % (PLAIN) ONE ×2 (07:18→08:34)
[2022-08-27] MEDS ORDERED: OFIRMEV IV 1000 MG VIAL 1,000 MG/100 ML VIAL IV ONE (07:18)
[2022-08-27] MEDS ORDERED: LACRI-LUBE S.O.P. ONE (07:19)
[2022-08-27] MEDS ORDERED: TORADOL 30 MG VIAL ONE (07:19)
[2022-08-27] MEDS ORDERED: ROBINUL ONE (07:19)
[2022-08-27] MEDS ORDERED: PEPCID 20 MG VIAL ONE (07:19)
[2022-08-27] MEDS ORDERED: ZOFRAN INJ 4 MG VIAL ONE (07:19)
[2022-08-27] MEDS ORDERED: ZEMURON 100 MG VIAL ONE (07:19)
[2022-08-27] MEDS ORDERED: BACTROBAN TOPICAL OINT ONE (08:17)
[2022-08-27] MEDS ORDERED: ULTANE GAS IN ONE (08:34)
[2022-08-27] MEDS ORDERED: KETAMINE HCL ONE (08:34)
[2022-08-27] MEDS ORDERED: FENTANYL VIAL INJ 100 mcg ONE (08:37)
[2022-08-27] MEDS ORDERED: VERSED ONE (08:37)
[2022-08-27] MEDS ORDERED: PRECEDEX INJ VIAL IVP ONE (08:44)
[2022-08-27] MEDS ORDERED: DECADRON INJ ONE (09:13)
[2022-08-27] MEDS ORDERED: EPHEDRINE SULFATE INJ ONE (09:35)
[2022-08-27] MEDS ORDERED: DILAUDID INJ ONE (10:27)
[2022-08-27] MEDS ORDERED: DILAUDID INJ IVP PRN (10:50)
[2022-08-27] MEDS ORDERED: BENADRYL INJ 50 MG VIAL IVP PRN (10:50)
[2022-08-27] MEDS ORDERED: BARHEMSYS INJ IVP PRN (10:50)
[2022-08-27] MEDS ORDERED: BARHEMSYS INJ ONE (11:26)
[2022-08-27] MEDS: D5 1/2 NS 1,000 ML 1,000 ML IV SCH ×3 (12:15→20:52)
[2022-08-27] MEDS: MYLICON TAB 80 MG CHEW PO PRN (13:27)
[2022-08-27] MEDS ORDERED: ANCEF VIAL 1 GRAM IV SCH (14:00)
[2022-08-27 14:24] LABS: BASOPHILS % (AUTO) 0.3 % (0.2-1.0); HEMATOCRIT 37.8 % (36.0-47.0); HEMOGLOBIN 12.2 g/dL (12.0-16.0); LYMPHOCYTES # (AUTO) 0.6 X10^3/uL (1.3-2.9); MEAN CORPUSCULAR HEMOGLOBIN 24.7 pg (27.0-34.0); MEAN CORPUSCULAR HGB CONC 32.3 g/dL (33.0-35.0); MEAN CORPUSCULAR VOLUME 76.4 fL (80.0-100.0); MEAN PLATELET VOLUME 8.3 fL (7.4-11.0); MONOCYTES # (AUTO) 0.1 x10^3/uL (0.3-0.8); MONOCYTES % (AUTO) 1.1 % (0.0-13.0); NEUTROPHILS # (AUTO) 11.5 x10^3/uL (2.2-4.8); NEUTROPHILS % (AUTO) 93.6 % (42.0-75.0); PLATELET COUNT 226 X10^3/uL (150.0-450.0); RED BLOOD COUNT 4.95 X10^6/uL (3.5-5.4); RED CELL DISTRIBUTION WIDTH 15.7 % (11.6-16.5); WHITE BLOOD COUNT 12.3 X10^3/uL (3.6-10.0)
[2022-08-27 14:39] LABS: ALANINE AMINOTRANSFERASE 74 Units/L (12-78); ALBUMIN 2.9 g/dL (3.4-5.0); ALKALINE PHOSPHATASE 64 Units/L (46-116); ASPARTATE AMINO TRANSFERASE 103 Units/L (15-37); BLOOD UREA NITROGEN 12 mg/dL (7-18); CALCIUM 7.7 mg/dL (8.5-10.1); CARBON DIOXIDE 26.8 mmol/L (21-32); CHLORIDE 103 mmol/L (98-107); COR CA(FOR HYPOALB) 8.6 mg/dL (8.5-10.1); COR NA(FOR HYPERGLY) 143 mmol/L (136-145); CREATININE 0.86 mg/dL (0.55-1.02); GLUCOSE 341 mg/dL (65-99); POTASSIUM 4.1 mmol/L (3.5-5.1); SODIUM 137 mmol/L (136-145); eGFR NON BLACK RACES > 60 (>60)
[2022-08-27 15:16] LABS: PLATELET MORPHOLOGY COMMENT NORMAL (NORMAL)
[2022-08-27 15:30] LABS: AMYLASE 44 Units/L (25-115); LIPASE 215 Units/L (73-393)
[2022-08-27] MEDS: DILAUDID INJ IVP PRN ×2 (15:47→19:58)
[2022-08-27] MEDS: ANCEF VIAL 1 GRAM 1 G in NS 100 ML IV 100 ML IV SCH ×2 (15:51→21:00)
[2022-08-27] MEDS: ZOFRAN INJ 4 MG VIAL IVP PRN (15:58)
[2022-08-27] MEDS ORDERED: MAALOX or MYLANTA ONE (17:55)
[2022-08-27] MEDS: MAALOX or MYLANTA PO PRN (18:00)
[2022-08-27] MEDS: NovoLIN R (or HumuLIN R) SC PRN ×2 (18:01→20:50)
[2022-08-27] MEDS: NICOTINE PATCH TD SCH (21:46)
[2022-08-28] MEDS: MYLICON TAB 80 MG CHEW PO PRN (00:47)
[2022-08-28] MEDS: MAALOX or MYLANTA PO PRN (00:47)
[2022-08-28] MEDS: DILAUDID INJ IVP PRN ×3 (00:55→18:47)
[2022-08-28] MEDS: ZOFRAN INJ 4 MG VIAL IVP PRN ×2 (00:55→05:59)
[2022-08-28] MEDS: D5 1/2 NS 1,000 ML 1,000 ML IV SCH (03:21)
[2022-08-28] MEDS: NovoLIN R (or HumuLIN R) SC PRN ×4 (05:58→21:13)
[2022-08-28] MEDS: ANCEF VIAL 1 GRAM 1 G in NS 100 ML IV 100 ML IV SCH ×3 (05:58→21:00)
[2022-08-28 06:17] LABS: BASOPHILS % (AUTO) 0.3 % (0.2-1.0); EOSINOPHILS % (AUTO) 0.1 % (0.9-2.9); HEMATOCRIT 34.1 % (36.0-47.0); HEMOGLOBIN 11.2 g/dL (12.0-16.0); LYMPHOCYTES # (AUTO) 1.4 X10^3/uL (1.3-2.9); LYMPHOCYTES % (AUTO) 12.5 % (21.0-51.0); MEAN CORPUSCULAR HGB CONC 32.9 g/dL (33.0-35.0); MEAN PLATELET VOLUME 8.5 fL (7.4-11.0); MONOCYTES # (AUTO) 0.6 x10^3/uL (0.3-0.8); MONOCYTES % (AUTO) 5.7 % (0.0-13.0); NEUTROPHILS # (AUTO) 9.2 x10^3/uL (2.2-4.8); NEUTROPHILS % (AUTO) 81.4 % (42.0-75.0); PLATELET COUNT 208 X10^3/uL (150.0-450.0); RED BLOOD COUNT 4.48 X10^6/uL (3.5-5.4); RED CELL DISTRIBUTION WIDTH 15.3 % (11.6-16.5); WHITE BLOOD COUNT 11.4 X10^3/uL (3.6-10.0)
[2022-08-28 06:44] LABS: ALANINE AMINOTRANSFERASE 51 Units/L (12-78); ALBUMIN 2.7 g/dL (3.4-5.0); ALKALINE PHOSPHATASE 56 Units/L (46-116); AMYLASE 32 Units/L (25-115); ASPARTATE AMINO TRANSFERASE 38 Units/L (15-37); BLOOD UREA NITROGEN 11 mg/dL (7-18); CARBON DIOXIDE 29.7 mmol/L (21-32); CHLORIDE 101 mmol/L (98-107); COR NA(FOR HYPERGLY) 140 mmol/L (136-145); CREATININE 0.66 mg/dL (0.55-1.02); GLUCOSE 280 mg/dL (65-99); LIPASE 128 Units/L (73-393); POTASSIUM 3.9 mmol/L (3.5-5.1); SODIUM 136 mmol/L (136-145); TOTAL PROTEIN 5.6 g/dL (6.4-8.2); eGFR NON BLACK RACES > 60 (>60)
[2022-08-28] MEDS: NICOTINE PATCH TD SCH (09:18)
--- NOTE | 2022-08-28 09:44 | DR.PROGNOT ---
HOSPITAL PROGRESS NOTE Progress Note for Day of: Progress Note Date: 08/28/22 Chief Complaint Chief Complaint: c/o RUQ pain radiating to the RT side .. no nausea , no vomiting . normal LFT . Hgb 11.2.. WBC 11.4.. BS 280 . moderate drainage in ALMA . stable VS, afebrile . Past Medical Family Social History Past Med/Fam/Surg Hx: No changes since H&P Allergies: Allergies Sulfa (Sulfonamide Antibiotics) [SULFA] Allergy (Verified 08/17/22 13:40) Vital Signs Vital Signs: Temperature 97.9 F Pulse Rate [Bilateral Radial] 72 Pulse Rate 71 Respiratory Rate 18 Blood Pressure [Right Arm] 133/60 Blood Pressure 129/60 O2 Sat by Pulse Oximetry 97 Physical Exam GI:Auscultation: Decreased GI: Tenderness: RUQ (moderate RUQ tenderness .BS hypoactive ..) Mood Description: Calm Speech Pattern: Clear and Appropriate Laboratory and Diagnostics Result Diagrams: 08/28/22 05:17 08/28/22 05:17 Labs: Laboratory WBC 11.4 X10^3/uL (3.6-10.0) H 08/28/22 05:17 RBC 4.48 X10^6/uL (3.5-5.4) 08/28/22 05:17 Hgb 11.2 g/dL (12.0-16.0) L 08/28/22 05:17 Hct 34.1 % (36.0-47.0) L 08/28/22 05:17 MCV 76.0 fL (80.0-100.0) L 08/28/22 05:17 MCH 25.0 pg (27.0-34.0) L 08/28/22 05:17 MCHC 32.9 g/dL (33.0-35.0) L 08/28/22 05:17 RDW 15.3 % (11.6-16.5) 08/28/22 05:17 Plt Count 208 X10^3/uL (150.0-450.0) 08/28/22 05:17 Plt Count Comment Adequate (ADEQUATE) 08/27/22 13:58 MPV 8.5 fL (7.4-11.0) 08/28/22 05:17 Neut % (Auto) 81.4 % (42.0-75.0) H 08/28/22 05:17 Lymph % (Auto) 12.5 % (21.0-51.0) L 08/28/22 05:17 [place] % (Auto) 5.7 % (0.0-13.0) 08/28/22 05:17 Eos % (Auto) 0.1 % (0.9-2.9) L 08/28/22 05:17 Baso % (Auto) 0.3 % (0.2-1.0) 08/28/22 05:17 Neut # (Auto) 9.2 x10^3/uL (2.2-4.8) H 08/28/22 05:17 Lymph # (Auto) 1.4 X10^3/uL (1.3-2.9) 08/28/22 05:17 [place] # (Auto) 0.6 x10^3/uL (0.3-0.8) 08/28/22 05:17 Eos # (Auto) 0.0 x10^3/uL (0.0-0.2) 08/28/22 05:17 Baso # (Auto) 0.0 X10^3/uL (0.0-0.1) 08/28/22 05:17 Absolute Nucleated RBC 0.0 /100WBC 08/28/22 05:17 Total Counted 100 08/27/22 13:58 Neutrophils % (Manual) 97 % (39-76) H 08/27/22 13:58 Lymphocytes % (Manual) 3 % (13-43) L 08/27/22 13:58 Plt Morphology Comment Normal (NORMAL) 08/27/22 13:58 RBC Morphology Normal (NORMAL) 08/27/22 13:58 Sodium 136 mmol/L (136-145) 08/28/22 05:17 Corrected Sodium 140 mmol/L (136-145) 08/28/22 05:17 Potassium 3.9 mmol/L (3.5-5.1) 08/28/22 05:17 Chloride 101 mmol/L (98-107) 08/28/22 05:17 Carbon Dioxide 29.7 mmol/L (21-32) 08/28/22 05:17 BUN 11 mg/dL (7-18) 08/28/22 05:17 Creatinine 0.66 mg/dL (0.55-1.02) 08/28/22 05:17 Est GFR (MDRD) Af Amer > 60 (>60) 08/28/22 05:17 Est GFR (MDRD) Non-Af > 60 (>60) 08/28/22 05:17 Glucose 280 mg/dL (65-99) H 08/28/22 05:17 POC Glucose (mg/dL) 277 mg/dL (65-99) H 08/28/22 05:38 Calcium 8.0 mg/dL (8.5-10.1) L 08/28/22 05:17 Corrected Calcium 9.0 mg/dL (8.5-10.1) 08/28/22 05:17 Total Bilirubin 0.20 mg/dL (0.2-1.0) 08/28/22 05:17 AST 38 Units/L (15-37) H 08/28/22 05:17 ALT 51 Units/L (12-78) 08/28/22 05:17 Alkaline Phosphatase 56 Units/L (46-116) 08/28/22 05:17 Total Protein 5.6 g/dL (6.4-8.2) L 08/28/22 05:17 Albumin 2.7 g/dL (3.4-5.0) L 08/28/22 05:17 Globulin 2.9 g/dL (2.5-4.5) 08/28/22 05:17 Albumin/Globulin Ratio 0.9 Ratio (1.1-2.1) L 08/28/22 05:17 Amylase 32 Units/L (25-115) 08/28/22 05:17 Lipase 128 Units/L (73-393) 08/28/22 05:17 Assessment and Plan 1: s/p lap wm , lysiss of abdominal adhesions . DM. moderate ileus . recent pancreatitis . to keep on IVF, pain control , diabetic control . and PO care for today .possible D/C in am ..
[2022-08-28] MEDS ORDERED: NS 1/2 1,000 ML IV 1,000 ML IV ONE ×2 (14:29→22:48)
[2022-08-28] MEDS: NS 1/2 1,000 ML IV 1,000 ML IV SCH ×3 (14:50→22:50)
[2022-08-29] MEDS: ANCEF VIAL 1 GRAM 1 G in NS 100 ML IV 100 ML IV SCH (05:40)
[2022-08-29] MEDS ORDERED: NS 1/2 1,000 ML IV 1,000 ML IV ONE (07:02)
[2022-08-29] MEDS: NS 1/2 1,000 ML IV 1,000 ML IV SCH (07:03)
[2022-08-29 11:40] VITALS: BP 121/62
[2022-08-29] MEDS: NICOTINE PATCH TD SCH (11:40)
== END 2022-08-29 12:45 | disposition home or self-care (01) ==
LOC: MED/SURG 06:14 → SURG1 06:14 → MED/SURG 11:50
PROVIDERS: ADMIT Surgery; ATTEND Surgery
DX: K81.0 Acute cholecystitis; E66.8 Other obesity; K66.0 Peritoneal adhesions (postprocedural) (postinfection); E11.65 Type 2 diabetes mellitus with hyperglycemia; K85.10 Biliary acute pancreatitis without necrosis or infection; K76.0 Fatty (change of) liver, not elsewhere classified